=== PATIENT | male | born 1985 | race Caucasian/White ===

== ENCOUNTER 2024-07-15 18:28 | Inpatient (IN) | payer BC, OTHER ==
[~2024-07-15] VITALS: Ht 175.3 cm; Wt 68.0 kg
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
[2024-07-15] MEDS: PANTOPRAZOLE 40 MG/10 ML VIAL INJ IV ONE (19:46)
[2024-07-15] MEDS: ONDANSETRON HCL 4 MG/2 ML VIAL IV ONE (19:46)
[2024-07-15] MEDS: SODIUM CHLORIDE 0.9% 1,000 ML IV ONE (19:47)
[2024-07-15 19:50] LABS: Eosinophils # (auto) 0 10 ^3/uL (0-0.8); Neutrophils # (auto) 2.3 10 ^3/uL (1.6-8.6); White Blood Cell 5.1 10^3/uL (4.4-10.8)
[2024-07-15 19:52] LABS: Basophils # (auto) 0 10 ^3/uL (0-0.2); Basophils % (auto) 0.4 % (0.0-2.0); Eosinophils % (auto) 0.2 % (0.0-7.0); Hematocrit 45.6 % (41.0-53.0); Lymphocytes # (auto) 2.2 10 ^3/uL (0.4-5.4); Lymphocytes % (auto) 43.5 % (10.0-50.0); Mean Corpuscular Volume 96.6 fL (80.0-100.0); Monocytes # (auto) 0.5 10 ^3/uL (0-1.3); Monocytes % (auto) 9.8 % (0.0-12.0); Neutrophils % (auto) 46.1 % (37.0-80.0); Nucleated Red Blood Cells % 0.3 %; Platelet Count (auto) 116 10^3/uL (140-450); Red Blood Cells 4.72 10^6/uL (4.5-5.90); Red Cell Distribution Width 17.6 % (11.8-14.3)
[2024-07-15 20:03] LABS: Anion Gap 10 (5-15); Carbon Dioxide 27 mmol/L (20-31); Total Protein 6.5 g/dL (5.7-8.2)
[2024-07-15 20:11] LABS: Alanine Aminotransferase 94 U/L (7-40); Albumin 3.8 g/dL (3.2-4.8); Alkaline Phosphatase 300 U/L (46-116); Aspartate Aminotransferase 531 U/L (13-40); BUN/Creatinine Ratio 9.4 (10.0-20.0); Bilirubin, Total 1.2 mg/dL (0.2-1.0); Blood Alcohol 356.7 mg/dL (<10); Blood Urea Nitrogen 11 mg/dL (9-23); Calcium 8.2 mg/dL (8.7-10.4); Chloride 90 mmol/L (98-107); Glucose 144 mg/dL (74-106); Potassium 4.8 mmol/L (3.5-5.1); Sodium 127 mmol/L (136-145)
[2024-07-15 20:20] LABS: Hemoglobin 16.1 g/dL (13.5-17.5); Mean Corpuscular Hemoglobin 32.1 pg (28.0-32.0); Mean Corpuscular Hgb Conc. 32.3 g/dL (32.0-36.0)
[2024-07-15 20:27] LABS: Lipase 112 U/L (12-53)
[2024-07-15] MEDS: IOHEXOL 300 MG/ML 100ML BOTTLE IJ ONE (21:08)
--- NOTE | 2024-07-15 21:18 | DVH ---
CHEST RADIOGRAPH Indication: abdominal pain Technique: Single frontal view of the chest was obtained Comparison: None FINDINGS: Lines and Tubes: None Lungs: Clear Pleura: No effusion. No pneumothorax. Cardiomediastinal contours: Unremarkable Bones: Unremarkable IMPRESSION: Clear lungs.
--- NOTE | 2024-07-15 22:02 | DVH ---
Procedure: CT CT AB PEL WITH IV CON ONLY 07/15/2024 08:43 PM Indication: abdominal pain Comparison Study: None Technique: Axial images were obtained and reformatted in coronal and sagittal planes. All CT scans at this medical facility are performed using dose modulation techniques as appropriate t o a performed exam including the following: Automated exposure control was utilized; adjustment of th e MA and/or KV according to patient size; and use of iterative reconstruction technique. CT Dose: CTDI volume is 7.3 mGy. Dose-length product is 474 mGy*cm FINDINGS: Lower Chest: Bibasilar subsegmental atelectasis is noted. Hepatobiliary: Hepatomegaly and hepatic steatosis. No calcified gallstones. No intrahepatic or extra hepatic ductal dilatation Spleen: Unremarkable. Pancreas: Unremarkable. Adrenal Glands: Unremarkable. tract: The kidneys are normal in size bilaterally without hydronephrosis or nephrolithiasis. The urinary bladder is unremarkable. GI tract: The stomach is grossly normal in appearance. Fecal like material seen in the ileal loops. N o evidence of bowel obstruction. No bowel distention or evidence of perforation. No mural thickening of the small or large bowel. The large bowel is unremarkable. The appendix is normal. Lymphatics: No mesenteric, retroperitoneal or periportal lymphadenopathy. Vasculature: The abdominal aorta is normal in in caliber. Pelvic Organs: Unremarkable Bones/soft tissues: No acute abnormality. Other: None. IMPRESSION: 1. Findings suggestive of small-bowel ileus. No bowel distention or transition point to suggest obstr uction. 2. Hepatomegaly and hepatic steatosis.
[2024-07-15] MEDS ORDERED: DOCUSATE SOD 100 MG CAP PO PRN (22:30)
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
[2024-07-15] MEDS ORDERED: NITROGLYCERIN 0.4 MG SL TAB SL PRN (23:00)
[2024-07-15] MEDS ORDERED: MORPHINE SULFATE INJ 2 MG/ml SYRG IV PRN (23:00)
[2024-07-15] MEDS: FOLIC ACID 1 MG in D5W 5% 50 ML INJ ONE (23:29)
[2024-07-15] MEDS: SODIUM CHLORIDE 0.9% 1,000 ML IV SCH (23:29)
[2024-07-15] MEDS: THIAMINE 100mg/ml INJ (200mg/2ml VIAL) IV ONE (23:31)
[2024-07-15] MEDS: HYDROcodone-ACET 5/325MG TAB PO PRN (23:32)
[2024-07-16 04:00] LABS: Eosinophils # (auto) 0 10 ^3/uL (0-0.8); Hemoglobin 16.5 g/dL (13.5-17.5); Mean Corpuscular Hemoglobin 35.4 pg (28.0-32.0); Red Blood Cells 4.67 10^6/uL (4.5-5.90)
[2024-07-16 04:03] LABS: Basophils # (auto) 0 10 ^3/uL (0-0.2); Basophils % (auto) 0.5 % (0.0-2.0); Eosinophils % (auto) 0.1 % (0.0-7.0); Hematocrit 45.6 % (41.0-53.0); Lymphocytes # (auto) 2.4 10 ^3/uL (0.4-5.4); Lymphocytes % (auto) 41.3 % (10.0-50.0); Mean Corpuscular Hgb Conc. 36.2 g/dL (32.0-36.0); Mean Corpuscular Volume 97.8 fL (80.0-100.0); Monocytes # (auto) 0.5 10 ^3/uL (0-1.3); Monocytes % (auto) 8.7 % (0.0-12.0); Neutrophils # (auto) 2.8 10 ^3/uL (1.6-8.6); Neutrophils % (auto) 49.4 % (37.0-80.0); Nucleated Red Blood Cells % 0.1 %; Platelet Count (auto) 95 10^3/uL (140-450); Red Cell Distribution Width 17.6 % (11.8-14.3); White Blood Cell 5.7 10^3/uL (4.4-10.8)
[2024-07-16] MEDS: ONDANSETRON HCL 4 MG/2 ML VIAL IV PRN (04:32)
[2024-07-16] MEDS: MORPHINE SULFATE INJ 2 MG/ml SYRG IV PRN (04:32)
[2024-07-16 04:49] LABS: Anion Gap 21 (5-15)
[2024-07-16 05:00] VITALS: BP 126/87; PULSE 94; RESP 16; TEMP 97.8; O2SAT 96
[2024-07-16 05:03] LABS: BUN/Creatinine Ratio 7.6 (10.0-20.0)
[2024-07-16 05:18] LABS: Alanine Aminotransferase 85 U/L (7-40); Albumin 3.6 g/dL (3.2-4.8); Alkaline Phosphatase 286 U/L (46-116); Aspartate Aminotransferase 377 U/L (13-40); Bilirubin, Total 1.3 mg/dL (0.2-1.0); Blood Urea Nitrogen 9 mg/dL (9-23); Calcium 8.3 mg/dL (8.7-10.4); Carbon Dioxide 14 mmol/L (20-31); Chloride 94 mmol/L (98-107); Glucose 118 mg/dL (74-106); Potassium 5.4 mmol/L (3.5-5.1); Sodium 129 mmol/L (136-145); Total Protein 6.6 g/dL (5.7-8.2)
[2024-07-16 08:54] VITALS: BP 153/110; PULSE 96; RESP 16; TEMP 98; O2SAT 96
[2024-07-16 09:00] VITALS: BP 153/110; PULSE 96; RESP 16; TEMP 98; O2SAT 96
[2024-07-16] MEDS: PANTOPRAZOLE 40 MG/10 ML VIAL INJ IV SCH (09:47)
[2024-07-16] MEDS: FOLIC ACID 1 MG in D5W 5% 50 ML INJ SCH (09:48)
[2024-07-16] MEDS: THIAMINE 100mg/ml INJ (200mg/2ml VIAL) IV SCH (10:17)
[2024-07-16] MEDS: MULTIPLE VITAMIN TAB PO SCH (10:17)
[2024-07-16 13:00] LABS: Urine Bacteria None Seen /hpf (None Seen)
[2024-07-16 13:11] LABS: Urine Blood Negative /uL (Negative); Urine Clarity Clear (Clear); Urine Color Yellow (Yellow); Urine Protein, UAD TRACE (Negative); Urine Specific Gravity 1.035 (1.001-1.035); Urine Squamous Epithelial Cell FEW /hpf (<5); Urine Urobilinogen Normal (Negative); Urine WBC 3 /HPF (0-3)
[2024-07-16 13:23] LABS: Amphetamine Screen, Urine Neg (NEGATIVE); Barbiturate Scree,Urine Neg (NEGATIVE); Benzodiazephine Screen, Urine Neg (NEGATIVE); Cannabinoid Screen, Urine Neg (NEGATIVE); Cocaine Screen, Urine Neg (NEGATIVE); Opiate Scree,Urine Pos (NEGATIVE); Phencyclidine Screen, Urine Neg (NEGATIVE)
[2024-07-16] MEDS ORDERED: HYDR-4924 PO (14:22)
[2024-07-16 17:00] VITALS: BP 171/106; PULSE 96; RESP 16; TEMP 98.1; O2SAT 96
[2024-07-16 20:00] VITALS: BP 165/97; PULSE 85; RESP 20; TEMP 98.2; O2SAT 94; O2SAT 98
--- NOTE | 2024-07-16 20:12 | DVHPN2 ---
Subjective in bed resting, not confused Changes from previous H/P or p: No Changes Eyes: No Pain, No Vision change, No Conjunctivae inflammation, No Eyelid inflammation, No Other, No Redness ENT: No Ear pain, No Ear discharge, No Nose pain, No Nose discharge, No Nose congestion, No Mouth pain, No Mouth swelling, No Throat pain, No Throat swelling, No Other Cardiovascular: No Chest Pain, No Palpitations, No Orthopnea, No Paroxysmal Noc. Dyspnea, No Edema, No Lt Headedness, No Other Respiratory: No Cough, No Dry; Shortness of breath, SOB with excertion; No Wheezing, No Hemoptysis, No Pleuritic Pain, No Sputum, No Other Gastrointestinal: Nausea, Vomiting, Abdominal Pain, Diarrhea; No Constipation; Melena; No Hematochezia; Other (Hematemesis) Genitourinary: No Dysuria, No Frequency, No Incontinence, No Hematuria, No Retention, No Other Musculoskeletal: No other, No neck pain, No shoulder pain, No arm pain, No back pain, No hand pain, No leg pain, No foot pain Skin: No Rash, No Lesions, No Jaundice, No Bruising, No Other Objective Vitals Vital Signs Date Time Temp Pulse Resp B/P (MAP) Pulse Ox O2 Delivery O2 Flow Rate FiO2 07/16/24 17:00 98.1 96 16 171/106 (127) 96 98.1 07/15/24 21:00 Room Air* 0 21 Intake/Output Intake and Output 07/16/24 07:00 Intake Total 1000 ml Balance 1000 ml IV Total 1000 ml General Appearance: Alert, Oriented X3 Lungs: Clear to auscultation Cardiovascular: Regular rate Abdomen: Normal bowel sounds Medications Current Medications Medications Dose Ordered Sig/Liza Route Start Time Stop Time Status Last Admin Dose Admin Pantoprazole Sodium 40 mg BID IV 07/16/24 10:00 07/16/24 09:47 40 MG Thiamine HCl 100 mg DAILY IV 07/16/24 10:00 07/16/24 10:17 100 MG Folic Acid 1 mg/ Dextrose 50.2 ml @ 200.8 mls/ hr DAILY INJ 07/16/24 10:00 07/16/24 09:48 200.8 MLS/HR Ibuprofen 600 mg Q8HP PRN PO 07/15/24 22:30 Sodium Chloride 1,000 ml @ 120 mls/hr Q8H20M IV 07/15/24 22:30 Acetaminophen/ Hydrocodone Bitart 1 tab Q4HP PRN PO 07/15/24 22:30 07/16/24 18:41 1 TAB Ondansetron HCl 4 mg Q4HP PRN IV 07/15/24 22:30 07/16/24 18:30 4 MG Docusate Sodium 100 mg BIDPRN PRN PO 07/15/24 22:30 Multivitamins 1 tab DAILY PO 07/16/24 10:00 07/16/24 10:17 1 TAB Morphine Sulfate 2 mg Q4HPRN PRN IV 07/15/24 22:30 07/16/24 16:25 2 MG Nitroglycerin 0.4 mg Q5MINP PRN SL 07/15/24 23:00 Morphine Sulfate 2 mg Q30M PRN IV 07/15/24 23:00 Laboratory Results Laboratory Tests 07/16/24 03:17 Chemistry Test 07/16/24 03:17 Albumin 3.6 g/dL (3.2-4.8) Calcium Level 8.3 mg/dL (8.7-10.4) L Total Protein 6.6 g/dL (5.7-8.2) LFT Test 07/16/24 03:17 Alanine Aminotransferase (ALT) 85 U/L (7-40) H Alkaline Phosphatase 286 U/L (46-116) H Aspartate Amino Transferase (AST) 377 U/L (13-40) H Total Bilirubin 1.3 mg/dL (0.2-1.0) H Urinalysis Test 07/16/24 08:09 Urine Color Yellow (Yellow) Urine Clarity Clear (Clear) Urine pH 6.0 (5.0-9.0) Urine Specific [place] 1.035 (1.001-1.035) Urine Protein Trace (Negative) H Urine Ketones Trace (Negative) Urine Blood Negative /uL (Negative) Urine Nitrite Negative (Negative) Urine Bilirubin Negative (Negative) Urine Urobilinogen Normal mg/dL (Negative) Urine Leukocyte Esterase Negative /uL (Negative) Urine RBC 3 /hpf (0 - 3) Urine Microscopic WBC 3 /HPF (0-3) Urine Squamous Epithelial Cells Few /hpf (<5) Urine Bacteria None seen /hpf (None Seen) Urine Glucose Normal mg/dL (Normal) Assessment/Plan Assessment/Plan Acute abdominal pain Melena Elevated liver enzymes Generalized abdominal pain Paralytic ileus of small intestine Alcohol intoxication Alcohol use, unspecified with intoxication delirium Alcoholic hepatitis Hyponatremia Hyperkalemia Monitor LFts IVF Plan discussed with: Patient My Orders Orders - COLTON RANDAHWA MD Procedure Category Date Status Time * Dietary Consult CONS 07/16/24 Transmitted 14:24 Date of Service: Jul 16, 2024 Billing Provider: COLTON RANDHAWA MD Common Visit Codes: [id number] INP/OBS CARE(HIGH) COLTON RANDHAWA MD Jul 16, 2024 20:12
[2024-07-16 21:30] VITALS: BP 149/95; PULSE 89; RESP 18; TEMP 98.2; O2SAT 94
[2024-07-17] VITALS (8 sets, daily range): BP systolic 147–168; BP diastolic 90–109; PULSE 73–114; RESP 16–20; TEMP 97.7–98.4; O2SAT 94–98
[2024-07-17] MEDS ORDERED: hydrALAZINE HCL 20 MG/ML VL IV PRN (11:45)
[2024-07-17] MEDS ORDERED: LORazepam 2MG/ML-1ML VIAL IV PRN (11:45)
[2024-07-17] MEDS: LORazepam 0.5 MG TAB PO STA (12:19)
[2024-07-17 14:49] LABS: Anion Gap 14 (5-15); Carbon Dioxide 22 mmol/L (20-31)
[2024-07-17 14:53] LABS: Calcium 8.7 mg/dL (8.7-10.4); Chloride 93 mmol/L (98-107); Sodium 129 mmol/L (136-145)
[2024-07-17 14:54] LABS: Glucose 86 mg/dL (74-106)
[2024-07-17 15:42] LABS: Blood Urea Nitrogen < 5 mg/dL (9-23)
--- NOTE | 2024-07-17 18:22 | DVHPN2 ---
Subjective in bed resting, not confused Changes from previous H/P or p: No Changes Eyes: No Pain, No Vision change, No Conjunctivae inflammation, No Eyelid inflammation, No Other, No Redness ENT: No Ear pain, No Ear discharge, No Nose pain, No Nose discharge, No Nose congestion, No Mouth pain, No Mouth swelling, No Throat pain, No Throat swelling, No Other Cardiovascular: No Chest Pain, No Palpitations, No Orthopnea, No Paroxysmal Noc. Dyspnea, No Edema, No Lt Headedness, No Other Respiratory: No Cough, No Dry; Shortness of breath, SOB with excertion; No Wheezing, No Hemoptysis, No Pleuritic Pain, No Sputum, No Other Gastrointestinal: Nausea, Vomiting, Abdominal Pain, Diarrhea; No Constipation; Melena; No Hematochezia; Other (Hematemesis) Genitourinary: No Dysuria, No Frequency, No Incontinence, No Hematuria, No Retention, No Other Musculoskeletal: No other, No neck pain, No shoulder pain, No arm pain, No back pain, No hand pain, No leg pain, No foot pain Skin: No Rash, No Lesions, No Jaundice, No Bruising, No Other Objective Vitals Vital Signs Date Time Temp Pulse Resp B/P (MAP) Pulse Ox O2 Delivery O2 Flow Rate FiO2 07/17/24 17:00 98.0 95 17 147/90 (109) 94 98.0 07/17/24 12:29 Room Air* 0 21 Intake/Output Intake and Output 07/17/24 07:00 Intake Total 1320 ml Output Total 1100 ml Balance 220 ml Intake Oral 1320 ml Output Emesis 1100 ml # Voids 2 General Appearance: Alert, Oriented X3 Lungs: Clear to auscultation Cardiovascular: Regular rate Abdomen: Normal bowel sounds Medications Current Medications Medications Dose Ordered Sig/Liza Route Start Time Stop Time Status Last Admin Dose Admin Pantoprazole Sodium 40 mg BID IV 07/16/24 10:00 07/17/24 08:46 40 MG Thiamine HCl 100 mg DAILY IV 07/16/24 10:00 07/17/24 09:23 100 MG Folic Acid 1 mg/ Dextrose 50.2 ml @ 200.8 mls/ hr DAILY INJ 07/16/24 10:00 07/17/24 09:54 200.8 MLS/HR Ibuprofen 600 mg Q8HP PRN PO 07/15/24 22:30 Sodium Chloride 1,000 ml @ 120 mls/hr Q8H20M IV 07/15/24 22:30 07/17/24 12:38 120 MLS/HR Acetaminophen/ Hydrocodone Bitart 1 tab Q4HP PRN PO 07/15/24 22:30 07/17/24 11:54 1 TAB Ondansetron HCl 4 mg Q4HP PRN IV 07/15/24 22:30 07/17/24 11:53 4 MG Docusate Sodium 100 mg BIDPRN PRN PO 07/15/24 22:30 Multivitamins 1 tab DAILY PO 07/16/24 10:00 07/17/24 09:22 1 TAB Morphine Sulfate 2 mg Q4HPRN PRN IV 07/15/24 22:30 07/17/24 08:47 2 MG Nitroglycerin 0.4 mg Q5MINP PRN SL 07/15/24 23:00 Morphine Sulfate 2 mg Q30M PRN IV 07/15/24 23:00 Lorazepam 2 mg Q4HP PRN IV 07/17/24 11:45 Hydralazine HCl 10 mg Q6HP PRN IV 07/17/24 11:45 Laboratory Results Laboratory Tests 07/16/24 03:17 07/17/24 13:15 Chemistry Test 07/17/24 13:15 Calcium Level 8.7 mg/dL (8.7-10.4) Urinalysis Test 07/16/24 08:09 Urine Color Yellow (Yellow) Urine Clarity Clear (Clear) Urine pH 6.0 (5.0-9.0) Urine Specific [place] 1.035 (1.001-1.035) Urine Protein Trace (Negative) H Urine Ketones Trace (Negative) Urine Blood Negative /uL (Negative) Urine Nitrite Negative (Negative) Urine Bilirubin Negative (Negative) Urine Urobilinogen Normal mg/dL (Negative) Urine Leukocyte Esterase Negative /uL (Negative) Urine RBC 3 /hpf (0 - 3) Urine Microscopic WBC 3 /HPF (0-3) Urine Squamous Epithelial Cells Few /hpf (<5) Urine Bacteria None seen /hpf (None Seen) Urine Glucose Normal mg/dL (Normal) Assessment/Plan Assessment/Plan Acute abdominal pain Melena Elevated liver enzymes Generalized abdominal pain Paralytic ileus of small intestine Alcohol intoxication Alcohol use, unspecified with intoxication delirium Alcoholic hepatitis Hyponatremia Hyperkalemia Monitor LFts IVF Monitor CBC Alcohol withdrawal protocol Plan discussed with: Patient My Orders Orders - COLTON RANDHAWA MD Procedure Category Date Status Time Lorazepam 2mg/Ml Inj PHA 07/17/24 In Process (Ativan Inj) 11:45 Hydralazine Injection PHA 07/17/24 In Process (Apresoline Inject 11:45 * Director Surgical CONS 07/17/24 Transmitted Consult Date of Service: Jul 17, 2024 Billing Provider: COLTON RANDHAWA MD Common Visit Codes: [id number] INP/OBS CARE(HIGH) COLTON RANDHAWA MD Jul 17, 2024 18:22
[2024-07-17 19:29] LABS: Albumin 3.6 g/dL (3.2-4.8); Anion Gap 11 (5-15); Carbon Dioxide 28 mmol/L (20-31); Total Protein 6.5 g/dL (5.7-8.2)
[2024-07-17 19:30] LABS: Alanine Aminotransferase 75 U/L (7-40); Alkaline Phosphatase 283 U/L (46-116); Aspartate Aminotransferase 369 U/L (13-40); BUN/Creatinine Ratio 4.4 (10.0-20.0); Bilirubin, Total 3.2 mg/dL (0.2-1.0); Blood Urea Nitrogen < 5 mg/dL (9-23); Chloride 94 mmol/L (98-107); Glucose 117 mg/dL (74-106); Potassium 3.2 mmol/L (3.5-5.1); Sodium 133 mmol/L (136-145)
[2024-07-18 01:00] VITALS: BP 138/93; PULSE 93; RESP 19; TEMP 98.2; O2SAT 95
[2024-07-18 05:00] VITALS: BP 147/95; PULSE 87; RESP 18; TEMP 98.3; O2SAT 95
[2024-07-18 08:00] VITALS: PULSE 78; PULSE 99; RESP 20; O2SAT 96
[2024-07-18 09:00] VITALS: BP 135/92; PULSE 78; RESP 17; TEMP 98; O2SAT 96
[2024-07-18] MEDS: POTASSIUM CHL 20 Meq TABLET PO ONE (10:37)
[2024-07-18] MEDS: IBUPROFEN 600 MG TAB PO PRN (10:47)
[2024-07-18 12:30] VITALS: BP 141/95; PULSE 97; RESP 16; TEMP 98.1; O2SAT 96
--- NOTE | 2024-07-18 12:50 | DVHPN2 ---
Eyes: No Pain, No Vision change, No Conjunctivae inflammation, No Eyelid inflammation, No Other, No Redness ENT: No Ear pain, No Ear discharge, No Nose pain, No Nose discharge, No Nose congestion, No Mouth pain, No Mouth swelling, No Throat pain, No Throat swelling, No Other Cardiovascular: No Chest Pain, No Palpitations, No Orthopnea, No Paroxysmal Noc. Dyspnea, No Edema, No Lt Headedness, No Other Respiratory: No Cough, No Dry; Shortness of breath, SOB with excertion; No Wheezing, No Hemoptysis, No Pleuritic Pain, No Sputum, No Other Gastrointestinal: Nausea, Vomiting, Abdominal Pain, Diarrhea; No Constipation; Melena; No Hematochezia; Other (Hematemesis) Genitourinary: No Dysuria, No Frequency, No Incontinence, No Hematuria, No Retention, No Other Musculoskeletal: No other, No neck pain, No shoulder pain, No arm pain, No back pain, No hand pain, No leg pain, No foot pain Skin: No Rash, No Lesions, No Jaundice, No Bruising, No Other Objective Vitals Vital Signs Date Time Temp Pulse Resp B/P (MAP) Pulse Ox O2 Delivery O2 Flow Rate FiO2 07/18/24 09:00 98.0 78 17 135/92 (106) 96 98.0 07/18/24 08:00 Room Air* 0 21 Intake/Output Intake and Output 07/18/24 07:00 Intake Total 300 ml Balance 300 ml IV Total 300 ml General Appearance: Alert, Oriented X3 Lungs: Clear to auscultation Cardiovascular: Regular rate Abdomen: Normal bowel sounds Medications Current Medications Medications Dose Ordered Sig/Liza Route Start Time Stop Time Status Last Admin Dose Admin Pantoprazole Sodium 40 mg BID IV 07/16/24 10:00 07/18/24 08:24 40 MG Thiamine HCl 100 mg DAILY IV 07/16/24 10:00 07/18/24 08:24 100 MG Folic Acid 1 mg/ Dextrose 50.2 ml @ 200.8 mls/ hr DAILY INJ 07/16/24 10:00 07/18/24 10:38 200.8 MLS/HR Ibuprofen 600 mg Q8HP PRN PO 07/15/24 22:30 07/18/24 10:47 600 MG Sodium Chloride 1,000 ml @ 120 mls/hr Q8H20M IV 07/15/24 22:30 07/18/24 08:26 120 MLS/HR Acetaminophen/ Hydrocodone Bitart 1 tab Q4HP PRN PO 07/15/24 22:30 07/18/24 08:26 1 TAB Ondansetron HCl 4 mg Q4HP PRN IV 07/15/24 22:30 07/18/24 08:24 4 MG Docusate Sodium 100 mg BIDPRN PRN PO 07/15/24 22:30 Multivitamins 1 tab DAILY PO 07/16/24 10:00 07/18/24 08:25 1 TAB Morphine Sulfate 2 mg Q4HPRN PRN IV 07/15/24 22:30 07/17/24 08:47 2 MG Nitroglycerin 0.4 mg Q5MINP PRN SL 07/15/24 23:00 Morphine Sulfate 2 mg Q30M PRN IV 07/15/24 23:00 Lorazepam 2 mg Q4HP PRN IV 07/17/24 11:45 Hydralazine HCl 10 mg Q6HP PRN IV 07/17/24 11:45 Laboratory Results Laboratory Tests 07/16/24 03:17 07/17/24 18:52 Chemistry Test 07/17/24 13:15 07/17/24 18:52 Calcium Level 8.7 mg/dL (8.7-10.4) 9.0 mg/dL (8.7-10.4) Albumin 3.6 g/dL (3.2-4.8) Total Protein 6.5 g/dL (5.7-8.2) LFT Test 07/17/24 18:52 Alanine Aminotransferase (ALT) 75 U/L (7-40) H Alkaline Phosphatase 283 U/L (46-116) H Aspartate Amino Transferase (AST) 369 U/L (13-40) H Total Bilirubin 3.2 mg/dL (0.2-1.0) H Urinalysis Test 07/16/24 08:09 Urine Color Yellow (Yellow) Urine Clarity Clear (Clear) Urine pH 6.0 (5.0-9.0) Urine Specific [place] 1.035 (1.001-1.035) Urine Protein Trace (Negative) H Urine Ketones Trace (Negative) Urine Blood Negative /uL (Negative) Urine Nitrite Negative (Negative) Urine Bilirubin Negative (Negative) Urine Urobilinogen Normal mg/dL (Negative) Urine Leukocyte Esterase Negative /uL (Negative) Urine RBC 3 /hpf (0 - 3) Urine Microscopic WBC 3 /HPF (0-3) Urine Squamous Epithelial Cells Few /hpf (<5) Urine Bacteria None seen /hpf (None Seen) Urine Glucose Normal mg/dL (Normal) HOWARD JENKINS MD Jul 18, 2024 12:50
--- NOTE | 2024-07-18 13:21 | DVHDS2 ---
Discharge Summary Date of Admission Jul 15, 2024 at 22:56 Date of Discharge: Jul 18, 2024 Admitting Diagnosis Acute abdominal pain Melena Elevated liver enzymes Generalized abdominal pain Paralytic ileus of small intestine Alcohol intoxication Alcohol use, unspecified with intoxication delirium Alcoholic hepatitis Hyponatremia Hyperkalemia Labs/Diagnostic Data: Laboratory Results Test 07/17/24 18:52 07/16/24 08:09 07/16/24 03:17 07/15/24 20:11 Sodium Level 133 mmol/L (136-145) Potassium Level 3.2 mmol/L (3.5-5.1) Chloride Level 94 mmol/L (98-107) Carbon Dioxide Level 28 mmol/L (20-31) Anion Gap 11 (5-15) Blood Urea Nitrogen < 5 mg/dL (9-23) Creatinine 1.13 mg/dL (0.700-1.30) Glomerular Filtration Rate Calc 84 mL/min (>90) BUN/Creatinine Ratio 4.4 (10.0-20.0) Serum Glucose 117 mg/dL (74-106) Calcium Level 9.0 mg/dL (8.7-10.4) Total Bilirubin 3.2 mg/dL (0.2-1.0) Aspartate Amino Transferase (AST) 369 U/L (13-40) Alanine Aminotransferase (ALT) 75 U/L (7-40) Alkaline Phosphatase 283 U/L (46-116) Total Protein 6.5 g/dL (5.7-8.2) Albumin 3.6 g/dL (3.2-4.8) Urine Color Yellow (Yellow) Urine Clarity Clear (Clear) Urine pH 6.0 (5.0-9.0) Urine Specific [place] 1.035 (1.001-1.035) Urine Protein Trace (Negative) Urine Ketones Trace (Negative) Urine Blood Negative /uL (Negative) Urine Nitrite Negative (Negative) Urine Bilirubin Negative (Negative) Urine Urobilinogen Normal mg/dL (Negative) Urine Leukocyte Esterase Negative /uL (Negative) Urine RBC 3 /hpf (0 - 3) Urine Microscopic WBC 3 /HPF (0-3) Urine Squamous Epithelial Cells Few /hpf (<5) Urine Bacteria None seen /hpf (None Seen) Urine Glucose Normal mg/dL (Normal) Urine Opiates Screen Pos (NEGATIVE) Urine Fentanyl Screen Pos (NEGATIVE) Urine Barbiturates Screen Neg (NEGATIVE) Urine Phencyclidine Screen Neg (NEGATIVE) Urine Amphetamines Screen Neg (NEGATIVE) Urine Benzodiazepines Screen Neg (NEGATIVE) Urine Cocaine Screen Neg (NEGATIVE) Urine Cannabinoids Screen Neg (NEGATIVE) White Blood Count 5.7 10^3/uL (4.4-10.8) Red Blood Count 4.67 10^6/uL (4.5-5.90) Hemoglobin 16.5 g/dL (13.5-17.5) Hematocrit 45.6 % (41.0-53.0) Mean Corpuscular Volume 97.8 fL (80.0-100.0) Mean Corpuscular Hemoglobin 35.4 pg (28.0-32.0) Mean Corpuscular Hemoglobin Concent 36.2 g/dL (32.0-36.0) Red Cell Distribution Width 17.6 % (11.8-14.3) Platelet Count 95 10^3/uL (140-450) Mean Platelet Volume 9.0 fL (6.9-10.8) Neutrophils (%) (Auto) 49.4 % (37.0-80.0) Lymphocytes (%) (Auto) 41.3 % (10.0-50.0) Monocytes (%) (Auto) 8.7 % (0.0-12.0) Eosinophils (%) (Auto) 0.1 % (0.0-7.0) Basophils (%) (Auto) 0.5 % (0.0-2.0) Neutrophils # (Auto) 2.8 10 ^3/uL (1.6-8.6) Lymphocytes # (Auto) 2.4 10 ^3/uL (0.4-5.4) Monocytes # (Auto) 0.5 10 ^3/uL (0-1.3) Eosinophils # (Auto) 0 10 ^3/uL (0-0.8) Basophils # (Auto) 0 10 ^3/uL (0-0.2) Nucleated Red Blood Cells 0.1 % Troponin I High Sensitivity 5 ng/L (</=54) Test 07/15/24 19:25 Lactic Acid Level 1.8 mmol/L (0.4-2.0) Lipase 112 U/L (12-53) Plasma/Serum Blood Alcohol 356.7 mg/dL (<10) Other Laboratory Tests 07/17/24 18:52 07/16/24 03:17 Brief Hx & Hospital Course: This is a 38 years old male with past medical history of alcohol abuse, GERD, hyperlipidemia came to emergency department because abdominal pain with melena and blood-streaked bowel movement radiated to the back. Pain associated with nausea, vomiting, hematemesis. The patient was evaluated in the emergency department with hemoglobin of 16.1, hematocrit 45.6. CT abdomen pelvis showed small bowel ileus, no bowel distention on transition point to suggest bowel obstruction. Hepatomegaly and hepatics steatosis Patient go through alcohol withdrawal . Librium and Ativan as needed was giving. Today the patient doing better. No abdominal pain, no nausea, vomiting. I am going to discharge the patient home. Outpatient workup with GI for melena. Activity as tolerated. Diet per home diet. Recommend no alcohol consumption. Follow up with primary care physician 1-2 weeks. Physical exam: HEENT: Normocephalic atraumatic pupils equal react to light and accommodation. Extraocular muscles intact, conjunctiva pink, oropharynx moist, no thrush, no exudate. Lymphatic: No lymphadenopathy Cardiovascular exam: S1, S2 was heard. No murmurs, rubs, gallops Lung: Clear on auscultation bilaterally, no wheeze, rale, rhonchi. GI: Abdominal soft, nondistended, nontenderness, positive bowel sounds. Extremity: No crepitus, cyanosis, edema. Pedal pulses present bilateral. Full range of motion. Skin: Normal turgor, no rash. Psych: Alert, oriented x3. Neurology: No focal deficits, cranial nerve II to XII grossly intact. This medical document was created using an electronic medical record system with [employer] direct computerized dictation system. Although this document has been carefully reviewed, there may still be some phonetic and typographical errors. These areas are purely typographical due to imperfections of the software programs, and do not reflect any compromise in the patient's medical care. Condition at Discharge: Stable Final Diagnosis/Problems List Acute abdominal pain Melena Elevated liver enzymes Generalized abdominal pain Paralytic ileus of small intestine Alcohol intoxication Alcohol use, unspecified with intoxication delirium Alcoholic hepatitis Hyponatremia Hyperkalemia Discharge Disposition: Home Discharge Statement: "Patient was advised to return to the ER or call 911 if any headaches, dizziness, shortness of breath, chest pain, abdominal pain, bleeding, fevers, or worsening of medical condition. Patient was counseled about treatment plan, medications, possible side effects, patientverbalized understanding. All questions were answered to the best of my ability. This discharge took greater then 30 minutes in planning, reviewing documentation, counseling the patient, and discussing with other team members." ASSESSMENT ASSESSMENT Assessment Date of Service: Jul 18, 2024 Billing Provider: HOWARD JENKINS MD Common Visit Codes: [id number] DISCH DAY >30min HOWARD JENKINS MD Jul 18, 2024 13:21
[2024-07-18] MEDS ORDERED: LORA-1123 PO (13:23)
[2024-07-18 13:58] VITALS: BP 146/88; PULSE 98; RESP 20; TEMP 98.7; O2SAT 97
== END 2024-07-18 14:30 | disposition home or self-care (01) | DRG 389 ==
LOC: EDBD 18:28 → ER 18:28 → OVERFLOW 22:56 → TELE-WESTW 07-17 11:19
PROVIDERS: ADMIT Hospitalist; ATTEND Hospitalist
DX: K56.0 Paralytic ileus (principal); E87.1 Hypo-osmolality and hyponatremia; F10.121 Alcohol abuse with intoxication delirium; K92.0 Hematemesis; F10.139 Alcohol abuse with withdrawal, unspecified; E87.5 Hyperkalemia; K70.10 Alcoholic hepatitis without ascites; R74.8 Abnormal levels of other serum enzymes; K21.9 Gastro-esophageal reflux disease without esophagitis; F17.210 Nicotine dependence, cigarettes, uncomplicated; E78.5 Hyperlipidemia, unspecified; Z79.899 Other long term (current) drug therapy; Y90.9 Presence of alcohol in blood, level not specified
CPT/HCPCS: 36415; 71045; 74177; 80048; 80053; 80307; 80320; 81001; 83605; 83690; 84484; 85025; 96361; 96374; 96375; 99291; G0378; J2405; J2470; J7060

== ENCOUNTER 2024-12-18 08:50 | Inpatient (IN) | payer SELFPAY ==
[~2024-12-18] VITALS: Ht 175.3 cm; Wt 77.6 kg
[~2024-12-18 08:50] MED LIST: HYDR-4924 PO; LORA-1123 PO
--- NOTE | 2024-12-18 08:58 | ED.PDOC ---
History of Present Illness HPI Comments This is a 38 year old male SHIVAA presenting to the ED with chief complaint of ETOH withdrawal and seizure. EMS reports that the patient was witnessed to be having seizure-like activity on his couch by his , calling 911. EMS relays that the patient has not drank any alcohol in the past 3 days. EMS states demetra carl was confused on scene, but has slowly been more alert over time. EMS notes that the patient has some tremors at this time. Patient denies any SI, HI, dizziness, headache, chest pain, SOB, or N/V. Time Seen by MD: 08:56 Reviewed Notes: Nurses Notes, Client Reporting Associate Notes, Medications, Allergies Allergies: Coded Allergies: NO KNOWN ALLERGIES (Unverified , 12/18/24) Home Meds Active Scripts Lorazepam (Lorazepam) 1 Mg Tab, 1 TAB PO TID PRN, #20 TAB Prov:HOWARD JENKINS MD 07/18/24 Reported Medications Hydroxyzine HCl (Hydroxyzine Hydrochloride) 25 Mg Tab, 25 MG PO, TAB 07/16/24 Information Source: Patient, Emergency Med Personnel Mode of Arrival: EMS Severity: Moderate Timing: Hours Duration: Since onset Prehospital treatment: None Past Medical History PAST MEDICAL HISTORY: Depression, GERD, High Lipids, Liver Surgical History: Denies all surgeries Family History Family History: Reviewed,noncontributory to illness Social History Smoker: Cigarettes, Greater Than 1 Pack/Day Alcohol: Heavy Drugs: Denies Drug Use Lives In: Home Constitutional: denies: chills, diaphoresis, fatigue, fever, malaise, sweats, weakness, others EENTM: denies: blurred vision, double vision, ear bleeding, ear discharge, ear drainage, ear pain, ear ringing, eye pain, eye redness, hearing loss, mouth pain, mouth swelling, nasal discharge, nose bleeding, nose congestion, nose pain, photophobia, tearing, throat pain, throat swelling, voice changes, others Respiratory: denies: cough, hemoptysis, orthopnea, SOB at rest, shortness of breath, SOB with excertion, stridor, wheezing, others Cardiovascular: denies: chest pain, dizzy spells, diaphoresis, Dyspnea on exertion, edema, irregular heart beat, left arm pain, lightheadedness, palpitations, PND, syncope, others Gastrointestinal: denies: abdomen distended, abdominal pain, blood streaked bowels, constipated, diarrhea, dysphagia, difficulty swallowing, hematemesis, melena, nausea, poor appetite, poor fluid intake, rectal bleeding, rectal pain, vomiting, others Genitourinary: denies: burning, dysuria, flank pain, frequency, hematuria, incontinence, penile discharge, penile sore, pain, testicle pain, testicle swelling, urgency, others Neurological: reports: seizure, tremors; denies: dizziness, fainting, headache, left sided numbness, left sided weakness, numbness, paresthesia, pre-existing deficit, right sided numbness, right sided weakness, speech problems, tingling, weakness, others Musculoskeletal: denies: back pain, gout, joint pain, joint swelling, muscle pain, muscle stiffness, neck pain, others Integumetry: denies: bruises, change in color, change in hair/nails, dryness, laceration, lesions, lumps, rash, wounds, others Allergic/Immunocompromised: denies: Difficulty Healing, Frequent Infections, Hives, Itching, others Hematologic/Lymphatic: denies: anemia, blood clots, easy bleeding, easy bruisi ng, swollen glands, others Endocrine: denies: excessive hunger, excessive sweating, excessive thirst, exce ssive urination, flushing, intolerance to cold, intolerance to heat, unexplained weight gain, unexplained weight loss, others Psychiatric: denies: anxiety, bipolar disorder, depression, hopeless, panic disorder, schizophrenia, sleepless, suicidal, others All Other Systems: Reviewed and Negative Physical Exam General Appearance: Moderate Distress, Normal HEENT: Pharynx Normal, Scleral Icterus (L), Scleral Icterus (R), TMs Normal Neck: Full Range of Motion, Non-Tender, Normal, Normal Inspection Respiratory: Chest Non-Tender, Lungs Clear, No Accessory Muscle Use, No Respiratory Distress, Normal Breath Sounds Cardiovascular: No Edema, No JVD, No Murmur, No Gallop, Normal Peripheral Pulses, Regular Rate/Rhythm Breast Exam: Deferred Gastrointestinal: No Organomegaly, Non Tender, No Pulsatile Mass, Normal Bowel Sounds, Soft Genitalia: Deferred Pelvic: Deferred Rectal: Deferred Extremities: No calf tenderness, Normal capillary refill, Normal inspection, Normal range of motion, Non-tender, No pedal edema Musculoskeletal : Apperance: Normal Neurologic: Alert, 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 Was a procedure done?: No Differential Dx Considerations may include: Anemia Electrolyte imbalance X-Ray, Labs, Meds, VS Vital Signs Date Time Temp Pulse Resp B/P (MAP) Pulse Ox O2 Delivery O2 Flow Rate FiO2 12/18/24 08:55 97.9 108 14 125/76 (92) 99 97.9 Lab Test 12/18/24 09:10 Range/Units White Blood Count 12.6 H 4.4-10.8 10^3/uL Red Blood Count 4.28 L 4.5-5.90 10^6/uL Hemoglobin 15.4 13.5-17.5 g/dL Hematocrit 44.2 41.0-53.0 % Mean Corpuscular Volume 103.1 H 80.0-100.0 fL Mean Corpuscular Hemoglobin 36.0 H 28.0-32.0 pg Mean Corpuscular Hemoglobin Concent 34.9 32.0-36.0 g/dL Red Cell Distribution Width 13.8 11.8-14.3 % Platelet Count 76 L 140-450 10^3/uL Mean Platelet Volume 9.2 6.9-10.8 fL Neutrophils (%) (Auto) 75.1 37.0-80.0 % Lymphocytes (%) (Auto) 15.8 10.0-50.0 % Monocytes (%) (Auto) 8.4 0.0-12.0 % Eosinophils (%) (Auto) 0.3 0.0-7.0 % Basophils (%) (Auto) 0.4 0.0-2.0 % Neutrophils # (Auto) 9.4 H 1.6-8.6 10 ^3/uL Lymphocytes # (Auto) 2.0 0.4-5.4 10 ^3/uL Monocytes # (Auto) 1.1 0-1.3 10 ^3/uL Eosinophils # (Auto) 0 0-0.8 10 ^3/uL Basophils # (Auto) 0 0-0.2 10 ^3/uL Nucleated Red Blood Cells 0.1 % Sodium Level 133 L 136-145 mmol/L Potassium Level 3.1 L 3.5-5.1 mmol/L Chloride Level 92 L 98-107 mmol/L Carbon Dioxide Level 25 20-31 mmol/L Anion Gap 16 H 5-15 Blood Urea Nitrogen 8 L 9-23 mg/dL Creatinine 1.17 0.700-1.30 mg/dL Glomerular Filtration Rate Calc 81 >90 mL/min BUN/Creatinine Ratio 6.8 L 10.0-20.0 Serum Glucose 105 74-106 mg/dL Calcium Level 9.9 8.7-10.4 mg/dL Ammonia 63 H 11-32 umol/L Plasma/Serum Blood Alcohol < 3.0 <10 mg/dL Current Medications Medications (Trade) Dose Ordered Sig/Liza Route Start Time Stop Time Status Last Admin Thiamine HCl 100 mg ONCE ONCE IV 12/18/24 09:00 12/18/24 09:01 DC 12/18/24 10:34 Lorazepam (Ativan Inj) 1 mg ONCE ONCE IV 12/18/24 09:00 12/18/24 09:01 DC 12/18/24 10:34 Patient alert. Alcohol abuse. Establish intravenous access. Was given fluids. Was given Ativan. History of drinking. Sclerae icterus. Continue monitoring. Time of 1ST Reevaluation: 09:55 Reevaluation 1ST: Unchanged Patient Education/Counseling: Diagnosis, Treatment Family Education/Counseling: No Family Present SEPSIS Sepsis Screen Physician Orders Urinalysis (12/18/24 08:55) Sodium Chloride 0.9% (12/18/24 09:00) Vital Signs Date Time Temp Pulse Resp B/P (MAP) Pulse Ox O2 Delivery O2 Flow Rate FiO2 12/18/24 08:55 97.9 108 14 125/76 (92) 99 97.9 Laboratory Tests Test 12/18/24 09:10 White Blood Count 12.6 10^3/uL (4.4-10.8) H Medications Medications Dose Ordered Sig/Liza Route Start Time Stop Time Status Last Admin Dose Admin Lorazepam 1 mg ONCE ONCE IV 12/18/24 09:00 12/18/24 09:01 DC 12/18/24 10:34 Thiamine HCl 100 mg ONCE ONCE IV 12/18/24 09:00 12/18/24 09:01 DC 12/18/24 10:34 Departure 1 Departure Time of Disposition: 09:20 Impression: Primary Impression: Metabolic encephalopathy Additional Impression: Alcohol use, unspecified with intoxication delirium Disposition: ADMITTED INPATIENT Admit to: Med Surg Condition: Guarded Critical Care Note Critical Care Time?: No Stability Stability form required: No Heart Score Heart Score: Heart Score Response (Comments) Value History N/A 0 EKG N/A 0 Age N/A 0 Risk Factors N/A 0 Troponin N/A 0 Total 0 I personally scribed for ALICE MULLIGAN MD ([email or web address]) on 12/18/24 at 08:58. Electronically submitted by Jeancarlos Melchor ([email or web address]). ALICE MULLIGAN MD Dec 18, 2024 08:58
[2024-12-18 09:37] LABS: Hemoglobin 15.4 g/dL (13.5-17.5); Nucleated Red Blood Cells % 0.1 %
[2024-12-18 09:38] LABS: Hematocrit 44.2 % (41.0-53.0); Mean Corpuscular Hemoglobin 36.0 pg (28.0-32.0); Mean Corpuscular Volume 103.1 fL (80.0-100.0)
[2024-12-18 09:53] LABS: Calcium 9.9 mg/dL (8.7-10.4); Chloride 92 mmol/L (98-107); Potassium 3.1 mmol/L (3.5-5.1); Sodium 133 mmol/L (136-145)
[2024-12-18 09:58] LABS: BUN/Creatinine Ratio 6.8 (10.0-20.0); Blood Urea Nitrogen 8 mg/dL (9-23); Glucose 105 mg/dL (74-106)
[2024-12-18 10:08] LABS: Anion Gap 16 (5-15); Carbon Dioxide 25 mmol/L (20-31)
[2024-12-18] MEDS: LORazepam 2MG/ML-1ML VIAL IV ONE (10:34)
[2024-12-18] MEDS: THIAMINE 100mg/ml INJ (200mg/2ml VIAL) IV ONE (10:34)
[2024-12-18 11:01] VITALS: PULSE 95; RESP 12; O2SAT 95
[2024-12-18] MEDS: SODIUM CHLORIDE 0.9% 1,000 ML IV SCH (12:00)
[2024-12-18] MEDS ORDERED: NITROGLYCERIN 0.4 MG SL TAB SL PRN (12:00)
[2024-12-18] MEDS ORDERED: DOCUSATE SOD 100 MG CAP PO PRN (12:00)
[2024-12-18] MEDS ORDERED: ONDANSETRON HCL 4 MG/2 ML VIAL IV PRN (12:00)
[2024-12-18 12:45] LABS: Magnesium 1.4 mg/dL (1.6-2.6)
[2024-12-18] MEDS: LACTULOSE 20Gm/30ML SOLN PO SCH (12:53)
[2024-12-18] MEDS: POTASSIUM CHL 20MEQ/100ML 100 ML IV SCH (12:53)
[2024-12-18] MEDS: SODIUM CHLORIDE 0.9% 1,000 ML IV ONE ×2 (12:54→13:14)
--- NOTE | 2024-12-18 16:09 | DVHHP2 ---
History of Present Illness Reason for Visit: etoh withdrawl History of Present Illness 38 yr old male with a history of alcohol use disorder and unclear GI history, no known surgical history, presented to the ED after a generalized tonic-clonic seizure witnessed by his . She reports that the patient has not consumed alcohol for the past three days, and the seizure occurred while he was lying on the couch. She immediately called 911. Upon EMS arrival, the patient was postictal. In the ED, the patient was found to be minimally responsive and sedated following administration of Ativan. His reports heavy daily alcohol use, and he reportedly attempted to quit drinking 2 months ago but relapsed. Current presentation is consistent with alcohol withdrawal seizure. Initial labs show: Alcohol level normal wbc found to be 12.6, na 133, k 3.1 cl 92, ammonia 63, Patient is currently being managed under [facility] protocol and is sedated with benzodiazepines. Seizure precautions and pt will be admitted for seizure precautions, and monitor for etoh withdrawl. Past Medical History See HPI above Past Surgical History See HPI above Family History Reviewed, non-contributory to the management of this case. Past Social History The patient lives at home, does smoking and alcohol not likley drug illicit drugs abuse. Review of Systems Review of Systems unable to assess ros d/t mental status Allergies: Coded Allergies: NO KNOWN ALLERGIES (Unverified , 12/18/24) Medications Current Medications Medications Dose Ordered Sig/Liza Route Start Time Stop Time Status Last Admin Dose Admin Chlordiazepoxide HCl 50 mg Q8HR PO 12/18/24 12:21 12/19/24 06:01 12/18/24 12:53 50 MG Chlordiazepoxide HCl 50 mg Q12H PO 12/19/24 18:00 12/20/24 06:01 Chlordiazepoxide HCl 25 mg Q12H PO 12/20/24 18:00 12/21/24 06:01 Chlordiazepoxide HCl 25 mg QAM PO 12/21/24 07:00 12/21/24 07:01 Sodium Chloride 1,000 ml @ 120 mls/hr Q8H20M IV 12/18/24 12:00 Ondansetron HCl 4 mg Q4HP PRN IV 12/18/24 12:00 Docusate Sodium 100 mg BIDPRN PRN PO 12/18/24 12:00 Nitroglycerin 0.4 mg Q5MINP PRN SL 12/18/24 12:00 Folic Acid 1 mg/ Magnesium Sulfate 8 meq/ Multivitamins 10 ml/Thiamine HCl 100 mg/Sodium Chloride 1,013.2 ml @ 126.247 mls/hr DAILY@1800 INJ 12/18/24 18:00 Potassium Chloride 100 ml @ 50 mls/hr Q2H IV 12/18/24 12:00 12/18/24 15:59 12/18/24 14:45 50 MLS/HR Lactulose 30 ml Q6HR PO 12/18/24 12:00 12/18/24 12:53 30 ML Lorazepam 1 mg Q2HPRN PRN IV 12/18/24 16:00 UNV Exam Vital Signs Vital Signs Date Time Temp Pulse Resp B/P (MAP) Pulse Ox O2 Delivery O2 Flow Rate FiO2 12/18/24 14:00 100 19 112/74 (87) 97 12/18/24 11:01 Room Air* 0 21 12/18/24 10:38 98.2 98.2 General Appearance: Other (sedated) HEENT: Atraumatic, PERRLA, EOMI, Mucous membr. moist/pink Respiratory: Clear to auscultation, Normal air movement Cardiovascular: Regular rate, Normal S1, Normal S2, No murmurs Abdominal: Normal bowel sounds, Soft, No tenderness, No hepatospenomegaly, No masses Extremities: No clubbing, No cyanosis, No edema, Normal pulses, No tenderness/swelling Skin: No rashes, No breakdown, No significant lesion Labs/Xrays I reviewed labs, imaging CT scan abdomen pelvis, EKG and all diagnostic studies on this patient from ED records and the medical chart Labs Test 12/18/24 09:10 Range/Units White Blood Count 12.6 H 4.4-10.8 10^3/uL Red Blood Count 4.28 L 4.5-5.90 10^6/uL Hemoglobin 15.4 13.5-17.5 g/dL Hematocrit 44.2 41.0-53.0 % Mean Corpuscular Volume 103.1 H 80.0-100.0 fL Mean Corpuscular Hemoglobin 36.0 H 28.0-32.0 pg Mean Corpuscular Hemoglobin Concent 34.9 32.0-36.0 g/dL Red Cell Distribution Width 13.8 11.8-14.3 % Platelet Count 76 L 140-450 10^3/uL Mean Platelet Volume 9.2 6.9-10.8 fL Neutrophils (%) (Auto) 75.1 37.0-80.0 % Lymphocytes (%) (Auto) 15.8 10.0-50.0 % Monocytes (%) (Auto) 8.4 0.0-12.0 % Eosinophils (%) (Auto) 0.3 0.0-7.0 % Basophils (%) (Auto) 0.4 0.0-2.0 % Neutrophils # (Auto) 9.4 H 1.6-8.6 10 ^3/uL Lymphocytes # (Auto) 2.0 0.4-5.4 10 ^3/uL Monocytes # (Auto) 1.1 0-1.3 10 ^3/uL Eosinophils # (Auto) 0 0-0.8 10 ^3/uL Basophils # (Auto) 0 0-0.2 10 ^3/uL Nucleated Red Blood Cells 0.1 % Sodium Level 133 L 136-145 mmol/L Potassium Level 3.1 L 3.5-5.1 mmol/L Chloride Level 92 L 98-107 mmol/L Carbon Dioxide Level 25 20-31 mmol/L Anion Gap 16 H 5-15 Blood Urea Nitrogen 8 L 9-23 mg/dL Creatinine 1.17 0.700-1.30 mg/dL Glomerular Filtration Rate Calc 81 >90 mL/min BUN/Creatinine Ratio 6.8 L 10.0-20.0 Serum Glucose 105 74-106 mg/dL Calcium Level 9.9 8.7-10.4 mg/dL Phosphorus Level 2.5 2.4-5.1 mg/dL Magnesium Level 1.4 L 1.6-2.6 mg/dL Ammonia 63 H 11-32 umol/L Plasma/Serum Blood Alcohol < 3.0 <10 mg/dL SEPSIS Sepsis Screen Date sepsis recognized/suspect: Dec 18, 2024 Time Sepsis recognized/suspect: 1140 Recent Procedure: No On Antibiotic Therapy: No Respiratory Rate >20: No Heart Rate >90: Yes Temp<36 C (96.8 F) or >38.3 C: No SBP <90 or MAP <65 mmHG: No New Acute Mental Status Change: No Is the patient on CPAP, BIPAP,: No Physician Orders Urinalysis (12/18/24 08:55) Chlordiazepoxide Hcl Capsule (Librium Ca (12/18/24 12:21) Chlordiazepoxide Hcl Capsule (Librium Ca (12/19/24 18:00) Chlordiazepoxide Hcl Capsule (Librium Ca (12/20/24 18:00) Chlordiazepoxide Hcl Capsule (Librium Ca (12/21/24 07:00) Admit (12/18/24 11:58) Allergies (12/18/24 11:58) Code Status (12/18/24 11:58) Sodium Chloride 0.9% (12/18/24 12:00) Ondansetron Hcl (Zofran) (12/18/24 12:00) Docusate Sodium Capsule (Colace Capsule) (12/18/24 12:00) Fall Risk Precautions In Place QSHIFT (12/18/24 11:58) Complete Blood Count (12/19/24 04:00) Comprehensive Metabolic Panel (12/19/24 04:00) Npo (Nothing By Mouth) Diet (12/18/24 Lunch) Condition: Stable (12/18/24 11:58) Maintain Bed Rest (12/18/24 11:58) Sequential Compression Device (12/18/24 ) Nitroglycerin Sublingual (Ntrostat Subli (12/18/24 12:00) Stat Ekg For Chest Pain (12/18/24 11:58) Notify Of Changes From Base (12/18/24 11:58) Trial Court Judge For 24 Hours (12/18/24 11:58) Emergency Dysrhythmia Protocol (12/18/24 11:58) Rhythm Strips Once Every Shift (12/18/24 11:58) Oxygen By Nasal Cannula (12/18/24 11:58) Folic Acid... (12/18/24 18:00) Potassium Chl 20meq/100ml (12/18/24 12:00) Lactulose Oral (12/18/24 12:00) Seizure Assessment (12/18/24 11:58) Seizure Precautions (12/18/24 ) Seizure Precautions In Place (12/18/24 11:58) Lorazepam 2mg/Ml Inj (Ativan Inj) (12/18/24 16:00) Etoh Withdrawal Assessment (12/18/24 15:47) Etoh Withdrawal Assessment NOW (12/18/24 15:47) Vital Signs Date Time Temp Pulse Resp B/P (MAP) Pulse Ox O2 Delivery O2 Flow Rate FiO2 12/18/24 14:00 100 19 112/74 (87) 97 12/18/24 13:00 96 18 130/81 (97) 97 12/18/24 11:41 95 11 122/75 (91) 97 12/18/24 11:01 95 12 95 Room Air* 0 21 12/18/24 10:38 98.2 103 20 124/77 (93) 97 98.2 12/18/24 08:55 97.9 108 14 125/76 (92) 99 97.9 Laboratory Tests Test 12/18/24 09:10 White Blood Count 12.6 10^3/uL (4.4-10.8) H Medications Medications Dose Ordered Sig/Liza Route Start Time Stop Time Status Last Admin Dose Admin Chlordiazepoxide HCl 50 mg Q8HR PO 12/18/24 12:21 12/19/24 06:01 12/18/24 12:53 50 MG Lactulose 30 ml Q6HR PO 12/18/24 12:00 12/18/24 12:53 30 ML Lorazepam 1 mg ONCE ONCE IV 12/18/24 09:00 12/18/24 09:01 DC 12/18/24 10:34 1 MG Potassium Chloride 100 ml @ 50 mls/hr Q2H IV 12/18/24 12:00 12/18/24 15:59 12/18/24 14:45 50 MLS/HR Sodium Chloride 1,000 ml @ 150 mls/hr Q6H40M ONCE IV 12/18/24 09:00 12/18/24 15:39 DC 12/18/24 13:14 150 MLS/HR Sodium Chloride 1,000 ml @ 1,000 mls/hr Q1H ONCE IV 12/18/24 09:00 12/18/24 09:59 DC 12/18/24 12:54 1,000 MLS/HR Thiamine HCl 100 mg ONCE ONCE IV 12/18/24 09:00 12/18/24 09:01 DC 12/18/24 10:34 100 MG Assessment/Plan Assessment/Plan 38 yr old male with Alcohol withdrawal seizure with high risk for delirium tremens; admitted for CIWA monitoring and medical stabilization. acute Alcohol Use Disorder / likely Withdrawal Seizure ct scan of brain ordered fu results Seizure occurred after 3 days of abstinence of etoh Continue CIWA protocol and librium taper Monitor for progression to delirium tremens Provide thiamine, folate, and multivitamins in banana bag Replete electrolytes (Mg, K, PO4) as needed Consider psych/social work consult for alcohol rehab evaluation once stable Seizure breakthrough acute ct scan brain ordered fu results Likely secondary to alcohol withdrawal Maintain seizure precautions Monitor neurologic status No evidence of recurrent seizure in ED; no chronic seizure history per acute elevation in ammonia level ordered lactulose bid for now acute leukocytosis likely acute phase reactant monitor no fever acute hypokalemia replete k ordered mag and phos chronic problems Alcohol use disorder tobacco dependence once more alert educated about smoking FEN / PPx Fluids: IV NS Electrolytes: Monitor Mg, K, Phos; replete as needed Nutrition: NPO initially, advance as tolerated once alert DVT Prophylaxis: SCDs GI Prophylaxis: PPI Disposition Admit to tele for alcohol withdrawal monitoring under CIWA protocol, seizure precautions, and supportive care. Social work consult pending for alcohol rehab evaluation. Plan discussed with: Patient My Orders Orders - AYLIN BELLO DNP Procedure Category Date Status Time Chlordiazepoxide Hcl PHA 12/18/24 In Process Capsule (Librium Ca 12:21 Chlordiazepoxide Hcl PHA 12/19/24 In Process Capsule (Librium Ca 18:00 Chlordiazepoxide Hcl PHA 12/20/24 In Process Capsule (Librium Ca 18:00 Chlordiazepoxide Hcl PHA 12/21/24 In Process Capsule (Librium Ca 07:00 Admit ADMIT 12/18/24 Transmitted 11:58 Allergies MYRTLE 12/18/24 In Process 11:58 Code Status CODE 12/18/24 Transmitted 11:58 Sodium Chloride 0.9% PHA 12/18/24 In Process 12:00 Ondansetron Hcl PHA 12/18/24 In Process (Zofran) 12:00 Docusate Sodium PHA 12/18/24 In Process Capsule (Colace 12:00 Fall Risk Precautions MYRTLE 12/18/[address] 11:58 Complete Blood Count LAB 12/19/24 Verified 04:00 Comprehensive LAB 12/19/24 Verified Metabolic Panel 04:00 Npo (Nothing By DIET 12/18/24 Transmitted Mouth) Diet Lunch Condition: Stable MYRTLE 12/18/24 In Process 11:58 Maintain Bed Rest MYRTLE 12/18/24 In Process 11:58 Sequential MYRTLE 12/18/24 In Process Compression Device Nitroglycerin PHA 12/18/24 In Process Sublingual (Ntrostat 12:00 Stat Ekg For Chest MYRTLE 12/18/24 In Process Pain 11:58 Notify Md Of Changes MYRTLE 12/18/24 In Process From Base 11:[address] Judge For MYRTLE 12/18/24 In Process 24 Hours 11:58 Emergency Dysrhythmia MYRTLE 12/18/24 In Process Protocol 11:58 Rhythm Strips Once MYRTLE 12/18/24 In Process Every Shift 11:58 Oxygen By Nasal RT 12/18/24 Transmitted Cannula 11:58 Folic Acid... PHA 12/18/24 In Process 18:00 Potassium Chl PHA 12/18/24 In Process 20meq/100ml 12:00 Lactulose Oral PHA 12/18/24 In Process 12:00 Seizure Assessment MYRTLE 12/18/24 In Process 11:58 Seizure Precautions ED NURSING 12/18/24 Transmitted Seizure Precautions MYRTLE 12/18/[address] 11:58 Lorazepam 2mg/Ml Inj PHA 12/18/24 Logged (Ativan Inj) 16:00 Etoh Withdrawal MYRTLE 12/18/24 In Process Assessment 15:47 Etoh Withdrawal MYRTLE 12/18/24 In Process Assessment 15:47 Date of Service: Dec 18, 2024 Billing Provider: AYLIN BELLO DNP Common Visit Codes: [id number] INP/OBS CARE (HIGH) AYLIN BELLO DNP Dec 18, 2024 16:09
--- NOTE | 2024-12-18 16:32 | DVH ---
EXAM DESCRIPTION: CT HEAD WITHOUT CONTRAST CLINICAL HISTORY: acute breakthrough seizure COMPARISON: None TECHNIQUE: Noncontrast CT head was performed. Coronal MPR images were generated. CTDI/ DLP = 54.05 mGy / 864.86 mGy.cm. Dose reduction technique with one or more of the following methods was performed: Automated exposure control, adjustment of the mA and/or kV according to patient size, use of iterative reconstruction te [place]nique. FINDINGS: No evidence of acute intracranial hemorrhage. No mass effect. No extra-axial collections of fluid or blood. The brain is normal in attenuation. The ventricles and sulci are normal in size for age. Clear basal cisterns. The calvarium is intact. The soft tissues are unremarkable. The paranasal sinuses and mastoid air cells are clear. IMPRESSION: 1. No acute intracranial findings.
[2024-12-18 18:32] VITALS: BP 125/79; PULSE 87; TEMP 98.5; O2SAT 99
[2024-12-18] MEDS: FOLIC ACID 1 MG, MAGNESIUM SULF SDV 50% 8 MEQ, MULTIPLE VITAMIN 10 ML, THIAMINE INJ 100... INJ SCH (18:46)
[2024-12-18 19:55] VITALS: BP 125/79; PULSE 87; RESP 20; TEMP 98.5; O2SAT 99
[2024-12-18 20:00] VITALS: PULSE 96
[2024-12-18 21:00] VITALS: BP 127/84; PULSE 88; TEMP 98.6; O2SAT 98
[2024-12-18 21:18] LABS: Urine Protein, UAD TRACE (Negative)
[2024-12-19] VITALS (8 sets, daily range): BP systolic 119–136; BP diastolic 75–94; PULSE 77–102; RESP 16–18; TEMP 97.6–98.8; O2SAT 96–99
[2024-12-19] MEDS: LORazepam 2MG/ML-1ML VIAL IV PRN (03:13)
[2024-12-19 06:26] LABS: Hematocrit 38.0 % (41.0-53.0); Hemoglobin 13.4 g/dL (13.5-17.5); Mean Corpuscular Hemoglobin 37.4 pg (28.0-32.0); Mean Corpuscular Volume 106.2 fL (80.0-100.0); Nucleated Red Blood Cells % 0.1 %
[2024-12-19 06:50] LABS: Alanine Aminotransferase 91 U/L (7-40); Albumin 4.2 g/dL (3.2-4.8); Alkaline Phosphatase 161 U/L (46-116); Anion Gap 14 (5-15); BUN/Creatinine Ratio 9.5 (10.0-20.0); Bilirubin, Total 2.4 mg/dL (0.2-1.0); Blood Urea Nitrogen 8 mg/dL (9-23); Calcium 9.1 mg/dL (8.7-10.4); Carbon Dioxide 22 mmol/L (20-31); Chloride 100 mmol/L (98-107); Glucose 61 mg/dL (74-106); Potassium 2.7 mmol/L (3.5-5.1); Sodium 136 mmol/L (136-145); Total Protein 6.4 g/dL (5.7-8.2)
[2024-12-19] MEDS: MAGNESIUM SULFATE 1GM/100ML 100 ML IV ONE (10:22)
[2024-12-19] MEDS: POTASSIUM CHL 20 Meq TABLET PO ONE (10:22)
[2024-12-19] MEDS: THIAMINE HCL 100 MG TAB PO SCH (10:22)
[2024-12-19] MEDS: D5W/SOD CHL 0.45% 1,000 ML IV SCH (16:31)
--- NOTE | 2024-12-19 19:06 | DVHPNRES ---
Progress Note Date Seen: Dec 19, 2024 Resident Creating Document: [facility] [place] RESIDENT Has the PT tested + for MRSA If YES, has PT been informed?: No Medical Necessity Reason Pt with a Central, PICC or Fol: No Subjective Review of Systems 38 yr old male with a history of alcohol use disorder and unclear GI history, no known surgical history, presented to the ED after a generalized tonic-clonic seizure witnessed by his . She reports that the patient has not consumed alcohol for the past three days, and the seizure occurred while he was lying on the couch. She immediately called 911. Upon EMS arrival, the patient was postictal. In the ED, the patient was found to be minimally responsive and sedated following administration of Ativan. His reports heavy daily alcohol use, and he reportedly attempted to quit drinking 2 months ago but relapsed. Current presentation is consistent with alcohol withdrawal seizure. Initial labs show: Alcohol level normal wbc found to be 12.6, na 133, k 3.1 cl 92, ammonia 63, Patient is currently being managed under CIWA protocol and is sedated with benzodiazepines. Seizure precautions and pt will be admitted for seizure precautions, and monitor for etoh withdrawl. 12/19/24 The patient was admitted with a generalized tonic-clonic seizure likely due to alcohol withdrawal, occurring after approximately 3 days of abstinence. On admission, he was postictal, sedated, and placed on CIWA protocol with seizure precautions. He has a significant history of alcohol use disorder with recent relapse. Today: * The patient is awake, alert, and oriented. * Reports last alcohol use was 6 days ago. * No new seizures in the past 24 hours. * Shaking and shivering noted. * He was initially NPO, and today his diet was advanced to a soft mechanical diet. * IV fluids changed to D5 NS at 100 cc/hr. * Potassium was low (2.7), magnesium was low and was repleted. Brief Gist of Todays Progress, Treatment, Labs, Imaging, and Plan * Progress: Improved alertness, tolerating soft mechanical diet, still showing tremors/shivering consistent with withdrawal. * Treatment: CIWA protocol with Librium taper, Ativan PRN, thiamine, folic acid, banana bag, electrolyte replacement. * Labs: * Electrolytes: K? 2.7 ? 3.5 after repletion; Mg 2.0 (improved); Phos 2.0. * LFTs: AST 216, ALT 105, Alk Phos 139, bilirubin 1.2 ? consistent with alcoholic hepatitis. * CBC: WBC 7.8 (improved), Hgb 12.4, Plt 67 (thrombocytopenia). * Imaging: CT head negative for acute intracranial pathology. * Plan: Continue CIWA protocol, monitor electrolytes, continue seizure precautions, advance diet as tolerated, monitor for delirium tremens. Past Social History The patient lives at home, does smoking and alcohol not likley drug illicit drugs abuse. Review of Systems * Constitutional: Tremors, shivering; denies fever, chills. * Neuro: No new seizures, alert, mild tremor. * CV: No chest pain, palpitations. * Resp: No dyspnea. * GI: No nausea/vomiting, tolerating soft diet. * : Normal urine output. * Psych: Anxiety related to withdrawal. * All other systems negative. Objective vital signs Vital Sign Date Time Temp Pulse Resp B/P (MAP) Pulse Ox O2 Delivery O2 Flow Rate FiO2 12/19/24 16:32 98.7 77 16 129/82 (98) 98 98.7 12/19/24 08:15 Room Air* 0 21 Total Intake and Output 12/18/24 12/18/24 12/19/24 15:00 23:00 07:00 Intake Total 100 ml 1013.2 ml Balance 100 ml 1013.2 ml medications Current Medications Medications Dose Ordered Sig/Liza Route Start Time Stop Time Status Last Admin Dose Admin Chlordiazepoxide HCl 50 mg Q12H PO 12/19/24 18:00 12/20/24 06:01 12/19/24 16:37 50 MG Chlordiazepoxide HCl 25 mg Q12H PO 12/20/24 18:00 12/21/24 06:01 Chlordiazepoxide HCl 25 mg QAM PO 12/21/24 07:00 12/21/24 07:01 Ondansetron HCl 4 mg Q4HP PRN IV 12/18/24 12:00 Docusate Sodium 100 mg BIDPRN PRN PO 12/18/24 12:00 Nitroglycerin 0.4 mg Q5MINP PRN SL 12/18/24 12:00 Folic Acid 1 mg/ Magnesium Sulfate 8 meq/ Multivitamins 10 ml/Thiamine HCl 100 mg/Sodium Chloride 1,013.2 ml @ 126.247 mls/hr DAILY@1800 INJ 12/18/24 18:00 12/19/24 16:44 126.247 MLS/HR Lactulose 30 ml Q6HR PO 12/18/24 12:00 12/19/24 16:37 30 ML Lorazepam 1 mg Q2HPRN PRN IV 12/18/24 16:00 12/19/24 03:13 1 MG Thiamine HCl 100 mg DAILY PO 12/19/24 10:00 12/19/24 10:22 100 MG Dextrose/Sodium Chloride 1,000 ml @ 100 mls/hr Q10H IV 12/19/24 16:30 12/19/24 16:31 100 MLS/HR Examination * General: Awake, alert, diaphoretic, shivering. * Neuro: Mild tremor, no focal deficits, GCS 15. * CV: Regular rate and rhythm, no murmurs. * Resp: Clear to auscultation, no distress. * GI: Soft, non-tender, normoactive bowel sounds. * Skin: Warm, no jaundice, no rashes. * Extremities: No edema. laboratory and microbiology Laboratory Tests 12/19/24 05:52 Test 12/19/24 05:52 Range/Units Serum Glucose 61 L 74-106 mg/dL Problem List/Assessment/Plan Problem List/Assessment/Plan Assessment 1. Alcohol withdrawal seizure Likely due to acute alcohol cessation. No recurrent seizures. CT head negative. 2. Alcohol withdrawal with risk of delirium tremens On CIWA protocol, Librium taper, Ativan PRN. 3. Electrolyte abnormalities Hypokalemia corrected; hypophosphatemia present, requires repletion. 4. Alcoholic hepatitis Elevated LFTs; monitor closely. 5. Thrombocytopenia Likely secondary to alcohol use; monitor. 6. Tobacco dependence Smoking cessation counseling planned. 7. Nutritional deficiencies Receiving thiamine, folic acid, multivitamins. Plan [facility] * Continue seizure precautions. * CIWA protocol with Librium taper, Ativan PRN. * Monitor neuro checks Q4H. * No antiepileptics indicated as seizure is withdrawal-related. Electrolytes/Renal * Replete K?, Mg, Phos as needed with daily labs. * Continue IV D5 NS at 100 mL/hr. GI/Hepatic * Continue banana bag, thiamine, folic acid. * Monitor LFTs daily. * Soft mechanical diet as tolerated. Hematology * Monitor CBC daily for thrombocytopenia. * Transfuse if platelets < 20K or active bleeding. Pulmonary/Cardiac * Continue telemetry monitoring. * O2 PRN if desaturation. Prophylaxis * DVT: Sequential Compression Devices. * GI: Proton pump inhibitor. * Fall precautions. Psych/Social * Smoking cessation consult. * Social work consult for alcohol rehab post-stabilization. Case discussed in detail with the attending physician, including the clinical presentation, diagnostic workup, and comprehensive management plan. The patient was present for the discussion and demonstrated understanding of his condition and the proposed plan. Plan discussed with: Patient My Orders My Orders Orders - [facility] [place] RESIDENT Procedure Category Date Status Time Thiamine Tab PHA 12/19/24 In Process 10:00 Mechanical Soft Diet DIET 12/19/24 Transmitted Breakfast D5w/Sod Chl 0.45% PHA 12/19/24 In Process (D5w 1/2ns) 16:30 Complete Blood Count LAB 12/20/24 Verified 04:00 Comprehensive LAB 12/20/24 Verified Metabolic Panel 04:00 Date of Service: Dec 19, 2024 Billing Provider: VISHAL LITTLEJOHN MD Common Visit Codes: 03422-[id number] INP/OBS CARE(HIGH) Secondary Visit Codes: 44883-TIASCVAP E&M SERVICE [facility] [place] RESIDENT Dec 19, 2024 19:06 VISHAL LITTLEJOHN MD Dec 22, 2024 01:51
[2024-12-20 01:00] VITALS: BP 142/96; PULSE 107; RESP 18; TEMP 96.7; O2SAT 97
[2024-12-20 05:00] VITALS: BP 138/95; PULSE 95; RESP 18; TEMP 97.2; O2SAT 99
[2024-12-20 07:00] LABS: Hematocrit 34.5 % (41.0-53.0); Hemoglobin 12.4 g/dL (13.5-17.5); Mean Corpuscular Hemoglobin 37.3 pg (28.0-32.0); Mean Corpuscular Volume 104.0 fL (80.0-100.0); Nucleated Red Blood Cells % 0.0 %
[2024-12-20 07:20] LABS: Albumin 3.8 g/dL (3.2-4.8); Anion Gap 11 (5-15); BUN/Creatinine Ratio 8.1 (10.0-20.0); Bilirubin, Total 1.2 mg/dL (0.2-1.0); Calcium 9.1 mg/dL (8.7-10.4); Carbon Dioxide 23 mmol/L (20-31); Glucose 86 mg/dL (74-106); Potassium 3.5 mmol/L (3.5-5.1); Sodium 142 mmol/L (136-145); Total Protein 6.0 g/dL (5.7-8.2)
[2024-12-20 07:21] LABS: Alanine Aminotransferase 105 U/L (7-40); Alkaline Phosphatase 139 U/L (46-116); Blood Urea Nitrogen 6 mg/dL (9-23); Chloride 108 mmol/L (98-107)
[2024-12-20 08:00] VITALS: PULSE 107
[2024-12-20 09:00] VITALS: BP 118/88; PULSE 97; RESP 17; TEMP 97.2; O2SAT 97
[2024-12-20] MEDS: POTASSIUM EFFERVESENT TAB 25 MEQ PO ONE (09:44)
[2024-12-20] MEDS ORDERED: D5W/SOD CHL 0.45% 1,000 ML IV SCH (13:15)
--- NOTE | 2024-12-20 13:38 | DVH ---
Ultrasound of the liver INDICATION: TRANSAMNITIS Technique: 2-D real-time ultrasound was performed with axial and sagittal images submitted for evalu ation. FINDINGS: Liver is enlarged measuring 21.6 cm and is increased in echogenicity. No focal hepatic mas s No gallstones or gallbladder wall thickening. No dilated intrahepatic bile ducts. The common bile duct is 4 mm in size IMPRESSION: 1. Enlarged echogenic liver possibly due to steatosis. 2. No gallbladder disease or biliary obstruction
[2024-12-20] MEDS ORDERED: AUG875T PO (14:04)
[2024-12-20] MEDS ORDERED: MULTTAB99 PO (16:08)
[2024-12-20] MEDS ORDERED: FOLI-119 PO (16:08)
[2024-12-20] MEDS ORDERED: THIA100T10 PO (16:08)
[2024-12-20] MEDS ORDERED: DOCU-265 PO (16:09)
--- NOTE | 2024-12-20 17:12 | DVHDSRES ---
Discharge Summary Date of Admission Resident Creating Document: BRANDI BURK RESIDENT Dec 18, 2024 at 11:58 Date of Discharge: Dec 20, 2024 Admitting Diagnosis Alcohol withdrawal seizure Labs/Diagnostic Data: Laboratory Results Test 12/20/24 10:54 12/20/24 05:48 12/18/24 21:02 12/18/24 09:10 Ammonia 29 umol/L (11-32) White Blood Count 7.8 10^3/uL (4.4-10.8) Red Blood Count 3.32 10^6/uL (4.5-5.90) Hemoglobin 12.4 g/dL (13.5-17.5) Hematocrit 34.5 % (41.0-53.0) Mean Corpuscular Volume 104.0 fL (80.0-100.0) Mean Corpuscular Hemoglobin 37.3 pg (28.0-32.0) Mean Corpuscular Hemoglobin Concent 35.9 g/dL (32.0-36.0) Red Cell Distribution Width 13.5 % (11.8-14.3) Platelet Count 67 10^3/uL (140-450) Mean Platelet Volume 9.2 fL (6.9-10.8) Neutrophils (%) (Auto) 72.8 % (37.0-80.0) Lymphocytes (%) (Auto) 15.5 % (10.0-50.0) Monocytes (%) (Auto) 8.8 % (0.0-12.0) Eosinophils (%) (Auto) 2.4 % (0.0-7.0) Basophils (%) (Auto) 0.5 % (0.0-2.0) Neutrophils # (Auto) 5.7 10 ^3/uL (1.6-8.6) Lymphocytes # (Auto) 1.2 10 ^3/uL (0.4-5.4) Monocytes # (Auto) 0.7 10 ^3/uL (0-1.3) Eosinophils # (Auto) 0.2 10 ^3/uL (0-0.8) Basophils # (Auto) 0 10 ^3/uL (0-0.2) Nucleated Red Blood Cells 0.0 % Sodium Level 142 mmol/L (136-145) Potassium Level 3.5 mmol/L (3.5-5.1) Chloride Level 108 mmol/L (98-107) Carbon Dioxide Level 23 mmol/L (20-31) Anion Gap 11 (5-15) Blood Urea Nitrogen 6 mg/dL (9-23) Creatinine 0.74 mg/dL (0.700-1.30) Glomerular Filtration Rate Calc 117 mL/min (>90) BUN/Creatinine Ratio 8.1 (10.0-20.0) Serum Glucose 86 mg/dL (74-106) Calcium Level 9.1 mg/dL (8.7-10.4) Magnesium Level 2.0 mg/dL (1.6-2.6) Total Bilirubin 1.2 mg/dL (0.2-1.0) Aspartate Amino Transferase (AST) 216 U/L (13-40) Alanine Aminotransferase (ALT) 105 U/L (7-40) Alkaline Phosphatase 139 U/L (46-116) Total Protein 6.0 g/dL (5.7-8.2) Albumin 3.8 g/dL (3.2-4.8) Vitamin B12 Level 1423 pg/mL (211-911) Folic Acid 15.49 ng/mL (>5.38) Urine Color Dark-yellow (Yellow) Urine Clarity Clear (Clear) Urine pH 6.5 (5.0-9.0) Urine Specific [place] 1.022 (1.001-1.035) Urine Protein Trace (Negative) Urine Ketones 1+ (Negative) Urine Blood Negative /uL (Negative) Urine Nitrite Negative (Negative) Urine Bilirubin 1+ (Negative) Urine Urobilinogen Over mg/dL (Negative) Urine Leukocyte Esterase Negative /uL (Negative) Urine RBC <1 /hpf (0 - 3) Urine Microscopic WBC 1 /HPF (0-3) Urine Squamous Epithelial Cells None seen /hpf (<5) Urine Bacteria None seen /hpf (None Seen) Urine Mucus Few (None Seen) Urine Glucose Normal mg/dL (Normal) Phosphorus Level 2.5 mg/dL (2.4-5.1) Plasma/Serum Blood Alcohol < 3.0 mg/dL (<10) Other Laboratory Tests 12/20/24 05:48 Brief Hx & Hospital Course: 38 yr old male with a history of alcohol use disorder and unclear GI history, no known surgical history, presented to the ED after a generalized tonic-clonic seizure witnessed by his . She reports that the patient has not consumed alcohol for the past three days, and the seizure occurred while he was lying on the couch. She immediately called 911. Upon EMS arrival, the patient was postictal. In the ED, the patient was found to be minimally responsive and sedated following administration of Ativan. His reports heavy daily alcohol use, and he reportedly attempted to quit drinking 2 months ago but relapsed. Current presentation is consistent with alcohol withdrawal seizure. Initial labs show: Alcohol level normal wbc found to be 12.6, na 133, k 3.1 cl 92, ammonia 63, Patient is currently being managed under CIWA protocol and is sedated with benzodiazepines. Seizure precautions and pt will be admitted for seizure precautions, and monitor for etoh withdrawl. Brief Hospital course: Patient had alcohol withdrawal seizure likely due to alcohol cessation and was at a risk of delirium tremens. CT head was negative. We continued seizure precautions. CIWA protocol was started patient was given [place], Ativan p.r.n.. We monitored neuro checks Q4H. Since seizure was withdrawal related no antiepileptics were indicated. patient had electrolyte abnormalities of hypokalemia and hypophosphatemia both of which were repleted. We gave a banana bag, repleted thiamine and folic acid and continued monitoring labs. We gave IV D5 half NS at 100 mL/hour. Patient was also kept on telemetry and monitored. For patient's alcoholic hepatitis, elevated LFTs was seen for which we closely monitored labs. Patient also had thrombocytopenia secondary to alcohol use which we continue to monitor and we had plans to transfuse platelets if it went below 20 K or if there is active bleeding. So tobacco dependence we have counseled patient regarding smoking cessation in the harms of it. Patient is now stable for discharge, and is advised to discuss ongoing naltrexone treatment with his PCP. And to discuss ongoing rehabilitation, and joining [facility] with his primary care. patient communicated understanding of his discharge plan and agreed. General: Patient alert and oriented in person, place and time. Patient following commands. HEENT: Normocephalic, atraumatic, moist mucous membranes Respiratory/pulmonary: Clear lungs bilaterally, vesicular murmurs present in almost all lung mullins, no associated crackles or wheezes. Cardiovascular: Normal heart sounds S1 and S2 with no associated murmurs Abdomen: Abdomen nondistended, there is no pain to palpation in any of the abdominal quadrants, no palpable masses. Extremities: There is no peripheral edema present at the lower extremities. Peripheral Pulses: 3+ Radial (R). 3+ Radial (L). 3+ Dorsalis pedis (R). 3+ Dorsalis pedis(L) Skin: No rashes or pruritus, there is no sacral edema present at this time. Neurological: Intact cranial nerves with no focal neurologic deficits Operations or Procedures ORDERING PHYSICIAN: JIMBO FERGUSON PROCEDURE(s): LIVUS - LIVER REASON: TRANSAMNITIS ORDER NUMBER(s): [id number], ACCESSION NUMBER(s): [id number] Ultrasound of the liver INDICATION: TRANSAMNITIS Technique: 2-D real-time ultrasound was performed with axial and sagittal images submitted for evaluation. FINDINGS: Liver is enlarged measuring 21.6 cm and is increased in echogenicity. No focal hepatic mass No gallstones or gallbladder wall thickening. No dilated intrahepatic bile ducts. The common bile duct is 4 mm in size IMPRESSION: 1. Enlarged echogenic liver possibly due to steatosis. 2. No gallbladder disease or biliary obstruction ORDERING PHYSICIAN: AYLIN BELLO DNP PROCEDURE(s): HWOCT - HEAD WITHOUT CONTRAST REASON: acute breakthrough seizure ORDER NUMBER(s): [id number], ACCESSION NUMBER(s): [id number] EXAM DESCRIPTION: CT HEAD WITHOUT CONTRAST CLINICAL HISTORY: acute breakthrough seizure COMPARISON: None TECHNIQUE: Noncontrast CT head was performed. Coronal MPR images were generated. CTDI/ DLP = 54.05 mGy / 864.86 mGy.cm. Dose reduction technique with one or more of the following methods was performed: Automated exposure control, adjustment of the mA and/or kV according to patient size, use of iterative reconstruction te[place]nique. FINDINGS: No evidence of acute intracranial hemorrhage. No mass effect. No extra-axial collections of fluid or blood. The brain is normal in attenuation. The ventricles and sulci are normal in size for age. Clear basal cisterns. The calvarium is intact. The soft tissues are unremarkable. The paranasal sinuses and mastoid air cells are clear. IMPRESSION: 1. No acute intracranial findings. Condition at Discharge: Stable Final Diagnosis/Problems List seizure, generalized tonic-clonic, due to alcohol withdrawal alcohol withdrawal Alcohol use disorder Alcohol withdrawal with risk of delirium tremens Hypokalemia- corrected Alcoholic hepatitis Transaminitis likely due to alcohol use Tobacco dependence Thrombocytopenia likely due to alcohol use Discharge Disposition: Home Discharge Instruct/Medications Diet: Regular Activity: No Restrictions, As Tolerated Follow Up/Referral: Follow up discharge clinic in 1 week follow up with PCP in 1-2 weeks Medications: As per EMR Scheduled Folic Acid (Folic Acid), 1 MG PO DAILY Multiple Vitamin (Mvi Tab), 1 TAB PO DAILY Thiamine Hcl (Vitamin B-1), 100 MG PO DAILY Scheduled PRN Docusate Sodium (Docusate Sodium), 100 MG PO BIDPRN PRN Lorazepam (Lorazepam), 1 TAB PO TID PRN Miscellaneous Medications Hydroxyzine HCl (Hydroxyzine Hydrochloride), 25 MG PO, (Reported) Discharge Statement: "Patient was advised to return to the ER or call 911 if any headaches, dizziness, shortness of breath, chest pain, abdominal pain, bleeding, fevers, or worsening of medical condition. Patient was counseled about treatment plan, medications, possible side effects, patientverbalized understanding. All questions were answered to the best of my ability. This discharge took greater then 30 minutes in planning, reviewing documentation, counseling the patient, and discussing with other team members." ASSESSMENT ASSESSMENT Assessment Alcohol use disorder Date of Service: Dec 20, 2024 Billing Provider: VISHAL LITTLEJOHN MD Common Visit Codes: 17723-MTC/OBS DISCH DAY >30min BRANDI BURK Dec 20, 2024 17:12 VISHAL LITTLEJOHN MD Dec 22, 2024 21:58
== END 2024-12-20 16:23 | disposition home or self-care (01) | DRG 101 ==
LOC: EDBD 08:50 → EDUNIT# 08:50 → ER 09:04 → OVERFLOW 11:58 → TELE-CENTR 18:43
PROVIDERS: ADMIT Student in an Organized Health Care Education/Training Program; ATTEND Internal Medicine Rheumatology
DX: G40.509 Epileptic seizures related to external causes, not intractable, without status epilepticus (principal); F10.239 Alcohol dependence with withdrawal, unspecified; D72.829 Elevated white blood cell count, unspecified; E87.6 Hypokalemia; D69.6 Thrombocytopenia, unspecified; R74.01 Elevation of levels of liver transaminase levels; K70.10 Alcoholic hepatitis without ascites; F32.A Depression, unspecified; K21.9 Gastro-esophageal reflux disease without esophagitis; F17.210 Nicotine dependence, cigarettes, uncomplicated
CPT/HCPCS: 36415; 70450; 76705; 80048; 80053; 80320; 81001; 82140; 82607; 82746; 83735; 84100; 85025; 96361; 96374; 96375; G0378; J3480